=== PATIENT | male | born 1980 | race American Indian/Alaskan Native ===

== ENCOUNTER 2016-04-04 09:13 | Emergency (ER) | payer BC, MEDICAID ==
[2016-04-04 09:26] VITALS: BP 150/99
--- NOTE | 2016-04-04 10:15 | Emergency Department Report ---
Chief Complaint: Syncope Stated Complaint: PASSED OUT @WORK/HEADACHE/DIZZINESS Time Seen by Provider: 04/04/16 10:08 - HPI History of Present Illness: 35-year-old male with no past history complains of a headache 1 month. Patient reports that he had a syncopal moment yesterday. He hit his head and his right knee. He reports that he's been breaking out in sweats. He reports increased thirst and increased urination patient denies any nausea vomiting. He was seen yesterday at the urgent care for a syncopal episode. Nurse reports that the blood glucose today was 90 in triage. Noted that his blood pressure is elevated. - Exam Vital Signs: Vital Signs 04/04/16 09:18 Temperature 98.3 F Pulse Rate 65 Respiratory 18 Rate Blood Pressure 150/99 O2 Sat by Pulse 99 Oximetry Physical Exam: Patient's alert and oriented 3. Neuro: EOMI intact tongue protrusion intact gag reflex intact tongue deviates his status intact. Strength and that the shoulders intact hand drum tender on the right is intact and strong not able to drum tender left hand secondary to deformity. Right knee tender to palpate decreased range of motion secondary to pain patient is limping in the exam room. MSE screening note: Focused history and physical exam performed. Due to findings the following was ordered: He's been evaluated by this provider MARY. We will order CBC BMP UA. Patient be evaluated in the main ER ED Disposition for MARY Condition: Stable
[2016-04-04 10:36] LABS: Hemoglobin 15.4 gm/dl (11.8-15.2); Mean Corpuscular HGB Conc 33 % (32-34); Mean Corpuscular Hemoglobin 31 pg (28-32); Mean Corpuscular Volume 92 fl (84-94); Platelet Count 255 K/mm3 (140-440); Red Blood Count 4.99 M/mm3 (3.65-5.03); Red Cell Distribution Width 14.2 % (13.2-15.2); White Blood Count 7.9 K/mm3 (4.5-11.0)
[2016-04-04 10:38] LABS: Bilirubin,Urine NEG (Negative); Blood,Urine NEG (Negative); Ketones,Urine NEG (Negative); Leukocyte Esterase,Urine NEG (Negative); Mucus,Urine FEW /HPF; Nitrite,Urine NEG (Negative); Protein,Urine <15 mg/dL mg/dL (Negative); Urobilinogen,Urine < 2.0 mg/dL (<2.0)
[2016-04-04 10:49] LABS: Anion Gap 21 mmol/L; Blood Urea Nitrogen 9 mg/dL (9-20); Calcium 9.3 mg/dL (8.4-10.2); Carbon Dioxide 22 mmol/L (22-30); Chloride 99.3 mmol/L (98-107); Glucose 106 mg/dL (75-100); Sodium 138 mmol/L (137-145)
--- NOTE | 2016-04-08 13:42 | ED Elopement Review ---
ED Pt Elopement review - Results review Lab results: Laboratory Tests 04/04/16 04/04/16 04/04/16 09:26 10:22 10:22 WBC 7.9 RBC 4.99 Hgb 15.4 H Hct 46.0 H MCV 92 MCH 31 MCHC 33 RDW 14.2 Plt Count 255 Sodium 138 Potassium 4.0 Chloride 99.3 Carbon Dioxide 22 Anion Gap 21 BUN 9 Creatinine 1.0 Estimated GFR > 60 BUN/Creatinine Ratio 9.00 Glucose 106 H POC Glucose 90 Calcium 9.3 Urine Color Urine Turbidity Urine pH Ur Specific [place] Urine Protein Urine Glucose (UA) Urine Ketones Urine Blood Urine Nitrite Urine Bilirubin Urine Urobilinogen Ur Leukocyte Esterase Urine WBC (Auto) Urine RBC (Auto) U Epithel Cells (Auto) Urine Mucus 04/04/16 10:26 WBC RBC Hgb Hct MCV MCH MCHC RDW Plt Count Sodium Potassium Chloride Carbon Dioxide Anion Gap BUN Creatinine Estimated GFR BUN/Creatinine Ratio Glucose POC Glucose Calcium Urine Color Yellow Urine Turbidity Clear Urine pH 6.0 Ur Specific [place] 1.011 Urine Protein <15 mg/dl Urine Glucose (UA) Neg Urine Ketones Neg Urine Blood Neg Urine Nitrite Neg Urine Bilirubin Neg Urine Urobilinogen < 2.0 Ur Leukocyte Esterase Neg Urine WBC (Auto) 1.0 Urine RBC (Auto) 1.0 U Epithel Cells (Auto) 1.0 Urine Mucus Few - Call Back decision Pt Call Back Decision: No action required
== END 2016-04-04 21:55 | disposition left against medical advice (07) ==
LOC: ED 09:13
DX: R55 Syncope and collapse (principal); R51 Headache; Z53.21 Procedure and treatment not carried out due to patient leaving prior to being seen by health care provider
CPT/HCPCS: 36415; 80048; 81001; 82962; 85027